=== PATIENT | female | born 1970 | race Caucasian/White ===

== ENCOUNTER 2020-10-17 14:06 | Outpatient (CLI) | payer OTHER | END 2020-10-17 14:28 | disposition home or self-care (01) | LOC: MRI 14:06 | DX: M54.89 Other dorsalgia (principal); M54.5 Low back pain | CPT/HCPCS: 72148 ==

== ENCOUNTER 2020-12-18 15:41 | Outpatient (CLI) | payer OTHER | END 2020-12-18 15:54 | disposition home or self-care (01) | LOC: RAD 15:41 | DX: O80 Encounter for full-term uncomplicated delivery (principal) ==

== ENCOUNTER 2021-02-18 14:55 | Outpatient (CLI) | payer OTHER | END 2021-02-18 15:06 | disposition home or self-care (01) | LOC: RAD 14:55 | DX: M54.5 Low back pain (principal); S32.049A Unspecified fracture of fourth lumbar vertebra, initial encounter for closed fracture ==

== ENCOUNTER → 2021-06-13 | Outpatient (CLI) | payer OTHER | END | disposition home or self-care (01) | LOC: PPH VACUNA 02:48 | PROVIDERS: ATTEND Emergency Medicine Pediatric Emergency Medicine | DX: Z23 Encounter for immunization (principal) ==

== ENCOUNTER 2021-07-01 14:58 | Outpatient (CLI) | payer OTHER | END 2021-07-01 15:10 | disposition home or self-care (01) | LOC: RAD 14:58 | DX: S22.080A Wedge compression fracture of T11-T12 vertebra, initial encounter for closed fracture (principal) ==

== ENCOUNTER 2022-12-15 14:38 | Emergency (ER) | payer OTHER ==
[~2022-12-15] VITALS: Ht 157.5 cm; Wt 79.4 kg
[2022-12-15] MEDS ORDERED: ATENOLOL50 MG PO (14:52)
[2022-12-15] MEDS ORDERED: HYDROCHLOROTHIA50 MG PO (14:52)
[2022-12-15] MEDS ORDERED: AMLODIPINE BESYL5 MG PO (14:52)
== END 2022-12-15 18:49 | disposition home or self-care (01) ==
LOC: ER 14:38
DX: R07.81 Pleurodynia (principal)